=== PATIENT | female | born 1995 | race Caucasian/White ===

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

== ENCOUNTER 2022-01-04 07:45 | Inpatient (IN) ==
[2022-01-04] MEDS ORDERED: OXYTOCIN/RINGERS LACTATE 10 UNIT/166.6 ML BAG IVC ONE (07:57)
[2022-01-04] MEDS ORDERED: Metoclopramide 10 MG/2 ML VIAL IVP ONE (07:57)
[2022-01-04] MEDS ORDERED: Ringers Solution, Lactated 1,000 ML IVC ONE (07:57)
[2022-01-04] MEDS ORDERED: Famotidine 20 MG/2 ML VIAL IVP ONE (07:57)
[2022-01-04] MEDS ORDERED: Ringers Solution, Lactated 1,000 ML IVC SCH ×2 (08:00→15:13)
[2022-01-04] MEDS ORDERED: MetroNIDAZOLE 500 MG/100 ML 500 MG/100 ML BAG IVPB ONE (08:56)
[2022-01-04 09:08] LABS: Segmented Neutrophils % 80.8 %
[2022-01-04 09:10] LABS: Basophils % 0.3 %; Eosinophils # 0.1 K/mcL (0.0-0.6); Eosinophils % 1.4 %; Hematocrit 31.1 % (35.3-44.9); Hemoglobin 8.8 g/dL (11.5-15.4); Immature Granulocytes % 0.5 % (0-4); Lymphocytes # 0.9 K/mcL (0.6-4.6); Lymphocytes % 12.4 %; Mean Corpuscular HGB Conc 28.3 g/dL (31.6-35.5); Mean Corpuscular Volume 70.5 fL (83.0-100.0); Mean Platelet Volume 10.3 fL (9.4-12.4); Monocytes # 0.3 K/mcL (0.0-1.3); Monocytes % 4.6 %; Neutrophils # 5.9 K/mcL (1.6-8.9); Platelet Count 385 K/mcL (140-400); Red Blood Count 4.41 M/mcL (3.82-4.97); Red Cell Distribution Width 24.3 % (11.5-14.5); White Blood Count 7.3 K/mcL (4.3-11.1)
[2022-01-04 09:15] LABS: Anisocytosis 2+ (Not Present); Hypochromasia Present (Not Present); Platelet Estimate Normal (Normal)
[2022-01-04] MEDS ORDERED: Oxytocin 30 UNIT/503 ML BAG IVC ONE (09:24)
[2022-01-04] MEDS ORDERED: CeFAZolin 2,000 MG/120 ML BAG IVPB ONE (10:00)
[2022-01-04] MEDS ORDERED: *HR* Morphine Sulfate/PF 10 MG/10 ML AMPUL ONE (10:16)
[2022-01-04] MEDS ORDERED: Ondansetron 4 MG/2 ML VIAL ONE (10:16)
[2022-01-04] MEDS ORDERED: *HR* FentaNYL (PF) 100 MCG/2 ML VIAL ONE (10:16)
[2022-01-04] MEDS ORDERED: Naloxone 0.4 MG/ML INJ IVP PRN ×2 (10:28→15:13)
[2022-01-04] MEDS ORDERED: Promethazine 6.25 MG in Water for inj. (sterile) 20 ML IVPB PRN (10:28)
[2022-01-04] MEDS ORDERED: *HR* HYDROmorphone PF 0.5 MG/0.5 ML SYRINGE IVP PRN (10:28)
[2022-01-04] MEDS ORDERED: *HR* Nalbuphine 10 MG/ML AMPUL IV PRN (10:30)
[2022-01-04 12:37] LABS: Amphetamine Screen,Urine Negative ng/mL (Cutoff=1000); Barbiturate Screen,Urine Negative ng/mL (Cutoff=200); Benzodiazepines Screen,Urine Negative ng/mL (Cutoff=200); Cannabinoid Screen,Urine Negative ng/mL (Cutoff = 50); Cocaine Screen,Urine Negative ng/mL (Cutoff= 300); Opiate Screen,Urine Negative ng/mL (Cutoff=300); Phencyclidine Screen,Urine Negative ng/mL (Cutoff=25)
[2022-01-04] MEDS ORDERED: Acetaminophen IV 1,000 MG/100 ML BAG IVPB ONE (12:51)
[2022-01-04] MEDS ORDERED: Ringers Solution, Lactated 1,000 ML ONE (12:54)
[2022-01-04] MEDS ORDERED: Simethicone 80 MG TAB.CHEW PO PRN (15:13)
[2022-01-04] MEDS ORDERED: Rho Immune Globulin 1,500 UNIT SYRINGE IM ONE (15:13)
[2022-01-04] MEDS ORDERED: Ondansetron 4 MG/2 ML VIAL IVP PRN (15:13)
[2022-01-04] MEDS ORDERED: Oxytocin 30 UNIT/503 ML BAG IVC SCH (15:13)
[2022-01-04] MEDS: Ibuprofen 600 MG TABLET PO SCH (17:15)
[2022-01-04] MEDS: Acetaminophen 325 MG TABLET PO SCH (17:16)
[2022-01-04] MEDS: metroNIDAZOLE 500 MG TABLET PO SCH (20:21)
[2022-01-04] MEDS: cephALEXin 500 MG CAPSULE PO SCH (20:21)
[2022-01-04] MEDS: *HR* OxyCODONE Immed Rel 5 MG TABLET PO PRN (22:34)
[2022-01-05] MEDS: Ibuprofen 600 MG TABLET PO SCH ×4 (03:37→20:38)
[2022-01-05] MEDS: Acetaminophen 325 MG TABLET PO SCH ×3 (03:37→20:39)
[2022-01-05 03:56] LABS: Immature Granulocytes % 0.4 % (0-4); Mean Corpuscular HGB Conc 28.3 g/dL (31.6-35.5); Red Blood Count 3.53 M/mcL (3.82-4.97)
[2022-01-05 03:58] LABS: Basophils % 0.4 %; Eosinophils # 0.1 K/mcL (0.0-0.6); Eosinophils % 1.1 %; Hematocrit 25.4 % (35.3-44.9); Hemoglobin 7.2 g/dL (11.5-15.4); Lymphocytes % 12.2 %; Mean Corpuscular Hemoglobin 20.4 pg (28.0-33.3); Mean Platelet Volume 10.6 fL (9.4-12.4); Monocytes # 0.5 K/mcL (0.0-1.3); Monocytes % 6.3 %; Neutrophils # 6.6 K/mcL (1.6-8.9); Platelet Count 310 K/mcL (140-400); Red Cell Distribution Width 24.5 % (11.5-14.5); Segmented Neutrophils % 79.6 %; White Blood Count 8.3 K/mcL (4.3-11.1)
[2022-01-05 04:42] LABS: Anisocytosis 2+ (Not Present); Hypochromasia Present (Not Present); Platelet Estimate Normal (Normal)
[2022-01-05] MEDS: metroNIDAZOLE 500 MG TABLET PO SCH ×3 (09:44→20:38)
[2022-01-05] MEDS: Prenatal Vit/FA 1 EACH TABLET PO SCH (09:44)
[2022-01-05] MEDS: cephALEXin 500 MG CAPSULE PO SCH ×3 (09:45→20:38)
[2022-01-05] MEDS: *HR* OxyCODONE Immed Rel 5 MG TABLET PO PRN (14:50)
[2022-01-05] MEDS ORDERED: Rho Immune Globulin 1,500 UNIT SYRINGE IM ONE (22:00)
[2022-01-06] MEDS: Ibuprofen 600 MG TABLET PO SCH ×3 (04:09→16:20)
[2022-01-06] MEDS: Acetaminophen 325 MG TABLET PO SCH ×3 (04:09→16:20)
[2022-01-06] MEDS ORDERED: Lanolin 7 G OINT...G. TP PRN (04:10)
[2022-01-06] MEDS: cephALEXin 500 MG CAPSULE PO SCH (08:01)
[2022-01-06] MEDS: Prenatal Vit/FA 1 EACH TABLET PO SCH (08:01)
[2022-01-06] MEDS: metroNIDAZOLE 500 MG TABLET PO SCH (08:01)
[2022-01-07 05:08] LABS: Basophils % 0.4 %; Mean Corpuscular HGB Conc 28.2 g/dL (31.6-35.5); Mean Corpuscular Volume 74.7 fL (83.0-100.0)
[2022-01-07 05:09] LABS: Eosinophils # 0.2 K/mcL (0.0-0.6); Eosinophils % 2.2 %; Hematocrit 24.5 % (35.3-44.9); Hemoglobin 6.9 g/dL (11.5-15.4); Immature Granulocytes % 0.4 % (0-4); Lymphocytes # 1.2 K/mcL (0.6-4.6); Lymphocytes % 16.8 %; Mean Platelet Volume 10.2 fL (9.4-12.4); Monocytes # 0.6 K/mcL (0.0-1.3); Monocytes % 8.1 %; Platelet Count 327 K/mcL (140-400); Red Blood Count 3.28 M/mcL (3.82-4.97); Red Cell Distribution Width 26.5 % (11.5-14.5); Segmented Neutrophils % 72.1 %; White Blood Count 6.9 K/mcL (4.3-11.1)
[2022-01-07 05:37] LABS: Anisocytosis 2+ (Not Present)
[2022-01-07 05:38] LABS: Hypochromasia Present (Not Present); Platelet Estimate Normal (Normal)
[2022-01-07] MEDS: Acetaminophen 325 MG TABLET PO SCH ×3 (06:10→12:35)
[2022-01-07] MEDS: Ibuprofen 600 MG TABLET PO SCH ×3 (06:11→12:35)
[2022-01-07] MEDS: Prenatal Vit/FA 1 EACH TABLET PO SCH (08:46)
[2022-01-07 09:06] VITALS: BP 103/55; PULSE 80; TEMP 98.1; O2SAT 99
== END 2022-01-07 16:06 | disposition home or self-care (01) | DRG 785 ==
LOC: 1NENULAB 07:45 → 1NENUOBS 15:25
PROVIDERS: ADMIT Obstetrics & Gynecology; ATTEND Obstetrics & Gynecology